=== PATIENT | female | born 1935 | race Two or more races ===

== ENCOUNTER → 2017-03-07 | Day surgery (SDC) | payer MEDICARE, MEDICAID ==
[~2017-03-07] VITALS: Ht 157.5 cm; Wt 83.3 kg
[~2017-03-07] MED LIST: AMITRIPTYLINE H25 MG PO; ASPIRIN LO-DOSE81 MG PO; DIOVAN160 MG PO; DOC-Q-LACE100 MG PO; GLUCOPHAGE500 MG PO; NEURONTIN300 MG PO; NORCO 5-325 TA1 EACH PO; PRAVACHOL20 MG PO; ULTRAM50 MG PO; ZEBETA5 MG PO
--- NOTE | ~2017-03-07 | OR ---
PATIENT'S NAME: TAINA CONTRERAS [facility] AGE: 81 Y [address] ROOM: [place] [id number] LOCATION: [facility] [place] ADMIT DATE: 03/07/2017 OR/Procedure Report DISCHARGE DATE: FAMILY PHYSICIAN: Duyen Jenkins MD ATTENDING PHYSICIAN: Cedric Cárdenas SURGEON: Cedric Cárdenas MD STEEL RIGGER: Wesley Owens PA-C. DATE OF PROCEDURE: 03/07/2017 PREOPERATIVE DIAGNOSIS: Biliary colic, cholelithiasis. POSTOPERATIVE DIAGNOSIS: Biliary colic, cholelithiasis. PROCEDURE PERFORMED: Laparoscopic cholecystectomy. ANESTHESIA: General with 25 mL 0.5% Marcaine with epinephrine. SPECIMEN: Gallbladder with multiple 1 cm stones. INDICATION: The patient is a pleasant 81-year-old young lady who has been having abdominal pain symptoms. She was evaluated by Dr. Jenkins and the workup included ultrasound which demonstrated cholelithiasis. Her symptoms were consistent with biliary colic. We recommended gallbladder removal. We explained the procedure, benefits, and risks and she agrees to proceed. DESCRIPTION OF PROCEDURE: After informed consent, the patient was taken to the operating room, and after general endotracheal anesthesia, the patient's abdomen was prepped and draped into a sterile field. We had a time-out performed. We confirmed the patient, planned procedure, and administration of preop antibiotics. Local anesthetic infiltrated prior to each incision. The first one was made below slightly to the left of the umbilicus, because of the previous midline scar. We went down and identified the fascia and inserted a Veress needle with two distinct pops and did perform a saline test. We created a pneumoperitoneum and placed our 11 mm trocar and laparoscope safely to the left side of the umbilicus. There was just omental adhesions to the anterior abdominal wall underneath the incision, but there is a window above to the right upper quadrant above them. Under direct vision, we placed the remaining trocars. We viewed the umbilical entrance point from above and safe entry was confirmed. We then identified the distended, pale, and floppy gallbladder. It was retracted cephalad and laterally. We could see multiple large stones in the infundibulum. We grabbed the infundibulum and retracted it laterally and stripped down the fatty tissue of the hepatoduodenal ligament. We out near the gallbladder origin of small caliber cystic duct. We clipped it x4 and divided. Cystic artery was then clipped x3 and divided. The gallbladder was removed from the liver bed with PATIENT'S NAME: TAINA CONTRERAS [facility] AGE: 81 Y [address] ROOM: [place] [address] LOCATION: [facility] [place] ADMIT DATE: 03/07/2017 OR/Procedure Report DISCHARGE DATE: FAMILY PHYSICIAN: Duyen Jenkins MD ATTENDING PHYSICIAN: Cedric Cárdenas electrocautery, placed into an EndoCatch bag and brought out through the fascia defect. We then irrigated the right upper quadrant until clear. No bleeding points. Staple lines intact. Largo intact. We under direct vision used an Endo Close with 0 Vicryl to close the subxiphoid fascia defect under direct vision. We then removed all trocars, released pneumoperitoneum. We used 0 Vicryl to close the umbilical fascia defect directly. The skin was closed with subcuticular 4-0 Vicryl. Steri-Strips and sterile dressings applied. Instrument, sponge, and needle count were correct. The patient was transferred to recovery room in stable condition. CEDRIC CÁRDENAS MD WTS/modl /[id number] d: 03/07/17 1407 t: 03/19/17 0950, OPERATIVE SUMMARY
== END | disposition disaster alternative care site (69) ==
LOC: GPOC 03-05 11:00 → GSDC 06:00
PROC: 0FT44ZZ Resection of Gallbladder, Percutaneous Endoscopic Approach (ICD-10-PCS; principal; 2017-03-07)
DX: K80.20 Calculus of gallbladder without cholecystitis without obstruction (principal); I10 Essential (primary) hypertension; E78.5 Hyperlipidemia, unspecified; E11.40 Type 2 diabetes mellitus with diabetic neuropathy, unspecified; Z79.82 Long term (current) use of aspirin; Z79.899 Other long term (current) drug therapy; Z79.84 Long term (current) use of oral hypoglycemic drugs
CPT/HCPCS: J0694; J2001; J7030